=== PATIENT | female | born 2000 | race Caucasian/White ===

== ENCOUNTER 2022-09-08 13:24 | Emergency (ER) | payer BC, SELFPAY ==
[2022-09-08 13:25] VITALS: BP 148/97; PULSE 66; RESP 16; TEMP 36.3; O2SAT 99; BMI 42.3
--- NOTE | 2022-09-08 15:40 | EX.ED.UPPERE ---
HPI History of Present Illness Chief Complaint: Laceration Informant: patient Narrative Narrative: Patient presents with laceration to left none dominant thumb. Just within the last couple hours patient had a laceration left nondominant thumb wall cutting food at work. Bleeding is controlled. Last tetanus was about 7 years ago. No other injuries. Nothing makes it better or worse. [facility] Medical History Anxiety Cataract Depression Home Medications citalopram 20 mg tablet (Celexa) 20 mg PO DAILY 09/08/22 [History Last Taken Unknown] Allergy/AdvReac Type Severity Reaction Status Date / Time No Known Allergies Allergy Verified 09/08/22 13:27 Social History pets and animals: Yes Smoking Status: Current every day smoker tobacco type: cigarettes ROS ROS ED Constitutional Constitutional ED: Denies fever(s) Gastrointestinal Gastrointestinal: Denies nausea Musculoskeletal Musculoskeletal: Reports other Details: See history of present illness Integumentary Reports other Details: See history of present illness Neurologic Neurologic: Denies paresthesias or weakness Hematologic/Lymphatic Hematologic/Lymphatic: Denies easy bleeding or easy bruising EXAM Physical Exam Narrative Exam Narrative: Patient awake alert sitting calmly in bed no acute distress carries on normal conversation. HEENT shows no trauma. Cardiorespiratory shows easy unlabored breathing. Extremities show a laceration across the very distal tip of her left thumb. This involves about 2 mm of the nail. It does open up. No active bleeding. No swelling. Sensation seems to still be intact generally in the region. Tendon function is normal. Const Vital Signs: 09/08/22 13:25 Temperature 97.4 F L Temperature Source Temporal Pulse Rate 66 Respiratory Rate 16 Blood Pressure 148/97 H Blood Pressure Mean 114 Pulse Ox 99 Oxygen Delivery Method Room Air MDM MDM MDM Narrative Medical decision making narrative: Suture: Suture laceration: The area around the wound was sterilely prepped draped and scrubbed. It was anesthetized with a total of 2.5 cc of 0.5% bupivacaine as a digital block. This was allowed to rest. Good anesthesia was achieved. It was further scrubbed and irrigated. The very tip of the nail on the distal aspect was removed as it was about to come off. I then placed 2 sutures to hold the flap back. 1 of these was next to the nail and 1 of these was through the nail. I used a 18-gauge needle to drill a hole through the nail to allow the suture to slide easily. Patient tolerated this well. Reasons to return and timing of suture removal was given to patient as well as care of the wound. Discharge Plan Triage Chief Complaint: Laceration ED Provider: Agustin Anderson Dx/Rx/DC Orders Clinical Impression: Laceration of left thumb Instructions: ED Laceration, Hand: All Closures Prescriptions: No Action citalopram [Celexa] 20 mg tablet 20 mg PO DAILY Primary Care Provider: Angelica Acosta Referrals: Angelica Acosta MD [Primary Care Provider] - 10 Day for suture removal Disposition Disposition: Home, Self Care
[2022-09-08] MEDS: Bupivacaine Mpf 0.5% 30 ML VIAL INFILT (18:05)
[2022-09-08 18:11] VITALS: RESP 16
== END 2022-09-08 18:13 | disposition home or self-care (01) ==
PROVIDERS: Emergency Provider Emergency Medicine; PCP Pediatrics; Visit Provider Emergency Medicine
DX: S61.112A Laceration without foreign body of left thumb with damage to nail, initial encounter (principal); F17.210 Nicotine dependence, cigarettes, uncomplicated; F32.A Depression, unspecified; Z79.899 Other long term (current) drug therapy; W26.8XXA Contact with other sharp object(s), not elsewhere classified, initial encounter; Y93.G1 Activity, food preparation and clean up
CPT/HCPCS: 12001; 99283

== ENCOUNTER 2024-07-04 12:47 | Emergency (ER) | payer OTHER, BC, SELFPAY ==
[2024-07-04 12:51] VITALS: BP 146/93; PULSE 110; RESP 20; TEMP 36.6; O2SAT 98; BMI 40.8
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
[2024-07-04 13:43] LABS: Absolute Lymphocyte Count 2.36 X10^3/uL (0.83-4.51); Absolute Neutrophil Count 8.6 X10^3/uL (2.0-7.7); Basophil# 0.07 X10^3/uL; Basophil% 0.6 % (0-1); Eosinophil# 0.11 X10^3/uL; Eosinophils% 0.9 % (0-5); Hematocrit 37.8 % (37-47); Hemoglobin 12.7 g/dL (12.0-15.0); Lymphocyte # 2.36 X10^3/ul (0.83-4.51); Lymphocyte % 19.8 % (19-41); Mean Corp Hgb Conc 33.6 g/dL (32-36); Mean Corpuscular Hgb 31.4 pg (27.0-32.0); Mean Corpuscular Volume 93.3 fL (81-99); Mean Platelet Vol. 9.3 fl (6.2-12.0); Monocyte# 0.67 X10^3/uL; Monocyte% 5.6 % (0-10); NRBC Flagged by Analyzer 0 % (0-5); Neutrophil # 8.63 X10^3/uL (2.7-7.7); Neutrophil % 72.6 % (47-70); Platelet Count 340 K/mm3 (150-450); RBC Distribution Width CV 14.3 % (11.6-14.6); Red Blood Count 4.05 M/mm3 (4.2-5.4); White Blood Count 11.9 K/mm3 (4.4-11.0)
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
[2024-07-04 13:48] LABS: Internal QC Validated? YES +Cl - CLEAR BKGD; Pregnancy, Serum, hCG Quali. NEGATIVE Negative
[2024-07-04 14:01] LABS: ALB/GLOB Ratio 1.2 RATIO (0.9-2.4); AST(SGOT) 27 U/L (<=31); Alanine Aminotransfer ALT/SGPT 35 U/L (<=34); Alcohol, Blood (Medical)-Serum < 10.1 mg/dL (<=10.0); Alkaline Phosphatase 61 U/L (35-104); Anion Gap 12 (5-15); BUN 9 mg/dL (4-19); BUN/Creat Ratio 17.8 RATIO (10-20); Calcium,Total 9.5 mg/dL (7.6-11.0); Chloride 104 mmol/L (98-108); Creatinine, Serum 0.53 mg/dL (0.70-1.20); EST Glomerular Filtration Rate 135 (>60); Estimated Creatinine Clearance 238.17 ml/min (50-250); Globulin 3.2 g/dL (2.2-4.2); Glucose 96 mg/dL (70-99); Protein, Total 7.1 g/dL (5.9-8.4); Sodium Level 137 mmol/L (133-145)
[2024-07-04 14:09] LABS: Amphetamine Urine NEGATIVE (<1000 ng/mL); Barbiturate Urine NEGATIVE (< 200 ng/mL); Benzodiazepine Urine NEGATIVE (< 200 ng/mL); Buprenorphine Urine NEGATIVE (< 200 ng/mL); Cocaine Urine NEGATIVE (< 300 ng/mL); Fentanyl, Urine NEGATIVE; Methadone Urine NEGATIVE (< 300 ng/mL); Opiates Urine NEGATIVE (< 300 ng/mL); Oxycodone, Urine NEGATIVE (< 100 ng/mL); PCP Urine NEGATIVE (< 25 ng/mL); THC Urine PRESUMPTIVE POSITIVE (< 50 ng/mL)
[2024-07-04 14:51] VITALS: BP 105/62; PULSE 89; RESP 18; TEMP 36.4; O2SAT 99
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
[2024-07-04 16:00] VITALS: BP 138/76; PULSE 78; RESP 14; O2SAT 98
--- NOTE | 2024-07-04 17:32 | ED.RN ---
PT.'S MOM TAKING CLOTHES AND PURSE HOME WITH HER. MOM STATES DAD BRINGING CLOTHES IN FOR PT. TO TAKE WITH TO FACILITY. PT. KEEPS PHONE.
--- NOTE | 2024-07-04 17:36 | CM.ED ---
Social work 1600: Called [facility] (ph: [phone]) and beds were available. Referral packet faxed (f: [phone]). 1650: Called [facility] to receive update; still reviewing patient's referral. 1725: Received call from Kennedy at [facility] who stated ability to accept patient. Kennedy stated need for pink slip even though patient is voluntary. During earlier assessment, SW had expressed to patient that a pink slip may be necessary despite patient going voluntarily and patient expressed understanding. [place] slip faxed to [facility] at 1740. Accepting information: [facility] Sumaya Harkins SHIP'S OFFICER, accepting SHIP'S OFFICER [id number] [phone] Patient, nursing, and doctor updated. Plan: [facility], pending transport Marybeth Guardado, CIRCUIT DESIGN ENGINEER, FIRE EATER
--- NOTE | 2024-07-04 19:32 | ED.RN ---
attempted to call report x2 to [facility]. No answer at this time
[2024-07-04 19:35] VITALS: BP 125/81; PULSE 81; RESP 18; TEMP 37.2; O2SAT 99
[2024-07-04 20:40] VITALS: BP 125/81; PULSE 81; RESP 18; TEMP 37.2; O2SAT 99
== END 2024-07-04 20:41 ==
PROVIDERS: Emergency Provider Surgery; Referring Provider Surgery; Visit Provider Surgery
DX: F14.10 Cocaine abuse, uncomplicated (principal); F18.10 Inhalant abuse, uncomplicated; F41.9 Anxiety disorder, unspecified; F12.10 Cannabis abuse, uncomplicated; V89.2XXA Person injured in unspecified motor-vehicle accident, traffic, initial encounter; F32.A Depression, unspecified; F17.210 Nicotine dependence, cigarettes, uncomplicated; Z79.899 Other long term (current) drug therapy
CPT/HCPCS: 80053; 80307; 82077; 84703; 85025; 93005; 99284